=== PATIENT | female | born 1950 | race Caucasian/White ===

== ENCOUNTER 2023-06-03 15:33 | Outpatient (CLI) | payer OTHER, SELFPAY | END 2023-06-03 15:34 | disposition home or self-care (01) | LOC: LKVREF 15:34 | PROVIDERS: Visit Provider Emergency Medicine | DX: L03.90 Cellulitis, unspecified (principal); I10 Essential (primary) hypertension | CPT/HCPCS: 86140 ==

== ENCOUNTER 2023-06-10 11:48 | Outpatient (CLI) | payer OTHER, SELFPAY | END 2023-06-10 11:49 | disposition home or self-care (01) | LOC: NFLDREF 06-13 07:18 | PROVIDERS: Visit Provider Emergency Medicine | DX: I10 Essential (primary) hypertension (principal); L03.90 Cellulitis, unspecified; L03.116 Cellulitis of left lower limb | CPT/HCPCS: 80048 ==

== ENCOUNTER 2023-06-24 12:24 | Outpatient (CLI) | payer OTHER, SELFPAY | END 2023-06-24 12:25 | disposition home or self-care (01) | LOC: LKVREF 12:24 | PROVIDERS: Visit Provider Emergency Medicine | DX: L03.90 Cellulitis, unspecified (principal) | CPT/HCPCS: 87070 ==

== ENCOUNTER 2023-07-28 12:43 | Outpatient (CLI) | payer OTHER, SELFPAY | END 2023-07-28 12:44 | disposition home or self-care (01) | PROVIDERS: PCP Emergency Medicine; Visit Provider Emergency Medicine | DX: R09.89 Other specified symptoms and signs involving the circulatory and respiratory systems (principal); L03.90 Cellulitis, unspecified | CPT/HCPCS: 93924 ==

== ENCOUNTER 2025-03-01 08:46 | Emergency (ER) | payer MEDICARE, SELFPAY ==
[2025-03-01 08:48] VITALS: BP 178/75; PULSE 88; RESP 16; TEMP 36.3; O2SAT 97; BMI 21.4
[2025-03-01 09:27] LABS: Strep A DNA Probe* NOT DETECTED (Not Detectd)
--- NOTE | 2025-03-01 09:27 | ED.GENADULT ---
HPI - General Adult General Chief complaint: Sore Throat Stated complaint: throat hurts- can't talk Time Seen by Provider: 03/01/25 09:15 History of Present Illness HPI narrative: This 74-year-old female comes in reporting sore throat and cough that began 3 or 4 days ago. She has not report any fevers or shortness of breath. She does have a hoarse voice. Related Data Home Medications ?Medication ?Instructions ?Recorded ?Confirmed amlodipine 2.5 mg tablet 2.5 mg PO DAILY 03/01/25 03/01/25 omeprazole 20 mg capsule,delayed 1 PO DAILY 03/01/25 release Allergies Allergy/AdvReac Type Severity Reaction Status Date / Time lisinopril Allergy Severe Anaphylaxis Verified 06/24/23 11:52 Penicillins Allergy Intermediate Verified 06/24/23 11:51 Review of Systems Status of ROS: Reports: 10 or more systems reviewed and unremarkable except as noted in History and below Narrative: Constitutional: No fevers, no weight gain or loss. Eyes: No discharge. No vision changes. HENT: No congestion, no ear pain. Sore throat as described above. Cardiovascular: No chest pain, no palpitations. Respiratory: No shortness of breath, no wheezes. Reports a cough. Gastrointestinal: No abdominal pain, no vomiting, no diarrhea. Genitourinary: No dysuria, no hematuria. Musculoskeletal: Normal range of motion. Skin: No rashes, no pruritis. Neurological: No dizziness, weakness, sensory change, speech change. Endo/Heme/Allergies: No bruising or bleeding. No polydipsia. Pysch: no suicidality, no anxiety, no insomnia. All other systems reviewed and are negative. [facility] Medical History (Updated 03/01/25 @ 10:06 by Onel Haddad MD) Abnormal ankle brachial index ?R68.89 - Other general symptoms and signs (ICD-10) Hypertension ?I10 - Essential (primary) hypertension (ICD-10) Cellulitis ?L03.90 - Cellulitis, unspecified (ICD-10) Foot contusion ?S90.30XA - Contusion of unspecified foot, initial encounter (ICD-10) Family History (Updated 06/03/23 @ 15:39 by Margaret Hamm MD) Father Lung cancer Mother Rheumatoid arthritis Social History Smoking Status: Former smoker How often do you have a drink containing alcohol: never How often do you have six or more drinks on one occasion: Never AUDIT-C Alcohol total score: 0 Non-prescribed substance use: denies use Exam Narrative: Exam Narrative: Constitutional: Well-developed, well-nourished, no acute distress. HEENT: Normocephalic, atraumatic. Oropharynx has erythema without exudate or tonsillar hypertrophy. Her voice is hoarse. Neck: Normal range of motion. Nontender. Supple. Heart: Regular. No murmurs. Normal rate. Intact distal pulses. Lungs: Clear to auscultation. No chest discomfort. No wheezes, rhonchi, or rales. Abdomen: Normal bowel sounds. Nontender. No rebound tenderness. Genitalia: Deferred. Back: No midline tenderness. Normal range of motion. Extremities: Normal range of motion. No injury. Skin: Intact. No rash. Warm. No erythema or pallor. Neurologic: No altered sensation. No weakness. Alert and oriented. Psychiatric: No suicidality. No anxiety or depression. No insomnia. Nursing notes and vitals signs are reviewed. Const: Vital Signs, click to edit/add: Vital Signs - 24 hr 03/01/25 08:48 Temperature 97.3 F L Pulse Rate [Pulse Oximeter] 88 Respiratory Rate 16 Blood Pressure [Ri ght Upper Arm] 178/75 H Pulse Oximetry 97 Oxygen Delivery Me thod Room Air Course Vital Signs Vital signs: Initial Vital Signs Temperature 97.3 F L 03/01/25 08:48 Temperature Source Temporal Artery Scan 03/01/25 08:48 Pulse Rate 88 03/01/25 08:48 Respiratory Rate 16 03/01/25 08:48 Blood Pressure 178/75 H 03/01/25 08:48 Blood Pressure Mean 109 H 03/01/25 08:48 Blood Pressure Position Sitting 03/01/25 08:48 Pulse Oximetry 97 03/01/25 08:48 Oxygen Delivery Method Room Air 03/01/25 08:48 Vital Signs Temperature 97.3 F L 03/01/25 08:48 Pulse Rate 88 03/01/25 08:48 Respiratory Rate 16 03/01/25 08:48 Blood Pressure 178/75 H 03/01/25 08:48 Pulse Oximetry 97 03/01/25 08:48 Oxygen Delivery Method Room Air 03/01/25 08:48 Temperature 97.3 F L 03/01/25 08:48 Pulse Rate 88 03/01/25 08:48 Respiratory Rate 16 03/01/25 08:48 Blood Pressure 178/75 H 03/01/25 08:48 Pulse Oximetry 97 03/01/25 08:48 Oxygen Delivery Method Room Air 03/01/25 08:48 Medications Administered Medications: Discontinued Medications Generic Name Dose Route Start Last Admin Trade Name Vasquez PRN Reason Stop Dose Admin Dexamethasone 10 mg 03/01/25 09:27 03/01/25 09:51 Dexamethasone 10 Mg/Ml Inj PO 03/01/25 09:28 10 mg ONCE ONE Administration Medical Decision Making MDM Narrative Medical decision making narrative: This patient comes in reporting sore throat and cough with hoarse voice over the past 3 or 4 days. She does not have any shortness of breath. She is not showing any sign of tonsillar abscess. Nasal pharyngeal swab returns negative for viruses tested and oral pharyngeal swab is negative for strep. The patient did receive an oral dose of dexamethasone 10 mg. Her symptoms are likely due to a viral upper respiratory infection. She is okay to be discharged home and I did provide a prescription for Toradol. Lab Data Labs: Lab Results 03/01/25 Range/Units 08:55 SARS-CoV-2 (PCR) Negative SARS-CoV-2 (Negative) Influenza Type A (PCR) Negative PCR FLU A (Negative) Influenza Type B (PCR) Negative PCR FLU B (Negative) RSV (PCR) Negative PCR RSV (Negative) Group A Strep DNA NOT DETECTED (Not Detectd) Discharge Plan Discharge Clinical Impression: Acute upper respiratory infection Patient Disposition: Home, Self-Care Condition: Stable Additional Instructions: Take medication as prescribed. Okay to use Tylenol and cough medicine also as needed and directed. Follow up with MD return if worsening. Prescriptions: No Action amlodipine 2.5 mg tablet 2.5 mg PO DAILY omeprazole 20 mg capsule,delayed release(DR/EC) 1 PO DAILY Follow Up/Referrals: Margaret Hamm MD [Staff Physician, Family Practice] Stand Alone Forms: viseto Info Instructions
[2025-03-01 09:39] LABS: PCR FLU A Negative PCR FLU A (Negative); PCR FLU B Negative PCR FLU B (Negative); PCR RSV Negative PCR RSV (Negative); SARS PCR* Negative SARS-CoV-2 (Negative)
--- OUTSIDE RECORDS SUMMARY | 2025-03-01 09:43 | XMS_ITS | Clinical Summary ---
Author Organization [facility] Address [address] [place] [address]. [place] [address] Care Team Providers Care Control Technician Name Role Phone [facility]- Primary Care Provider Allergies Active Allergy Reactions Criticality Noted Date Comments Penicillins Hives 05/21/2019 Medications amoxicillin (AMOXIL) 875 MG tabletIndication s:AOM (acute otitis media), left Take 1 tablet (875 mg) by mouth 2 times daily 20 tablet 0 06/20/2014 Active Active Problems Problem Noted Date Diagnosed Date Advance care planning 08/08/2014 FH: colon cancer 08/28/2011 Overview (08/28/2011): Pt refuses colonoscopy Resolved Problems Problem Noted Date Diagnosed Date Resolved Date Health Snf 05/13/2013 02/09/2024 Overview (05/13/2013): State Tier Level: Tier 0 Status: n/a Repacker: See Letters for [facility] Care Plan Immunizations Immunization Administration Dates Next Due TD,PF 7+ ([facility]) 01/23/2006 Family History Medical History Relation Comments Cancer Father lung Hypertension Mother Cancer - colorectal Sister 6 Breast Cancer No family hx of C.A.D. No family hx of Cerebrovascular Disease No family hx of Diabetes No family hx of Relation Status Comments Brother Alive Father Mother Sister 1 Alive Sister 2 Alive Sister 3 Alive Sister 4 Alive Sister 5 Alive Sister 6 Social History Tobacco Use Types Packs/Day Years Used Date Smoking Tobacco: Every Day Cigarettes 0.5 25 Smokeless Tobacco: Never Tobacco Cessation:Ready to Q uit: No; Counseling Given: Yes Alcohol Use Standard Drinks/Week Comments No 0 (1 standard drink = 0.6 oz pur e alcohol) Adolescent Education Answer Date Record ed Getting School Help Needed Not on file 05/28 Comments No Sex and Gender Information Value Date Recorded Sex Assigned at Not on file 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 Gender Identity Not on file Sexual Orientation Not on file 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 Not on file Not on file Not on ester e Last Filed Vital Signs Vital Sign Reading Time Taken Comments Blood Pressure 167/87 05/28/2023 6:30 PM CDT Pulse 80 05/28/2023 6:30 PM CDT Temperature 36.7 C (98.1 F) 05/28/2023 4:04 PM CDT Respiratory Rate 16 05/28/2023 5:52 PM CDT Oxygen Saturation 96% 05/28/2023 6:30 PM CDT Inhaled Oxygen Concentration - - Weight 53.5 kg (118 lb) 05/28/2023 1:28 PM CDT Height 162.6 cm (5' 4) 05/28/2023 1:28 PM CDT Body Mass Index 20.25 05/28/2023 1:28 PM CDT Plan of Treatment Health Maintenance Due Date Last Done Comments ADVANCE CARE PLANNING 1950 ANNUAL REVIEW OF HM ORDERS 1950 CT COLONOGRAPHY 1950 DEXA 1950 FIT 1950 FLEX SIG 1950 MAMMO SCREENING 1950 sDNA (Cologuard) 1950 COLONOSCOPY 1960 COLORECTAL CANCER SCREENING 1960 HEPATITIS C SCREENING 1968 PNEUMOCOCCAL VACCINE 50+ YEARS (1 of 2 - PCV) 1969 LIPID 1990 LUNG CANCER SCREENING 2000 ZOSTER VACCINE (1 of 2) 2000 DTAP/TDAP/TD VACCINE (1 - Tdap) 01/24/2006 01/23/2006 FALL RISK ASSESSMENT 2015 MEDICARE ANNUAL WELLNESS VISIT 2015 COVID-19 VACCINE ( season) 2024 07/13/2021, 11/17/2020, 10/26/2020 PHQ-2 (once per calendar year) 2024 INFLUENZA VACCINE (#1) 2025 2, 07/02/2021, 06/18/2019, Additional history exists RSV VACCINE (1 - 1-dose 75+ series) 2025 DIABETES SCREENING 05/28/2026 05/28/2023 HPV VACCINE Aged Out No longer eligi ble based on patient's age to complete this topic MENINGITIS VACCINE Aged Out No longer eligible based on patient's age to complete this topic Procedures Procedure Name Priority Date/Time Associated Diagnosis Comments BASIC METABOLIC PANEL STAT 05/28/2023 2:58 PM CDT from Last 3 Months or Most Recently Relevant to Health Maintenance Results * Basic metabolic panel (05/28/2023 2:58 PM CDT) Sodium 141 135 - 145 mmol/L 05/28/2023 3:31 PM CDT [facility] Comment:Reference intervals for this test were updated on 05/20/2023 to more accurately reflect our healthy population. There may be differences in the flagging of prior results with similar values performed with this method. Interpretation of those prior results can be made in the context of the updated reference intervals. Potassium 4.2 3.4 - 5.3 mmol/L 05/28/2023 3:31 PM CDT [facility] Chloride 105 98 - 107 mmol/L 05/28/2023 3:31 PM CDT [facility] Carbon Dioxide (CO2) 27 22 - 29 mmol/L 05/28/2023 3:31 PM CDT [facility] Anion Gap 9 7 - 15 mmol/L 05/28/2023 3:31 PM CDT [facility] Urea Nitrogen 11.7 8.0 - 23.0 mg/dL 05/28/2023 3:31 PM CDT [facility] Creatinine 0.69 0.51 - 0.95 mg/dL 05/28/2023 3:31 PM CDT [facility] GFR Estimate >90 >60 mL/min/1. 73m2 05/28/2023 3:31 PM CDT [facility] Calcium 9.5 8.8 - 10.2 mg/dL 05/28/2023 3:31 PM CDT [facility] Glucose 91 70 - 99 mg/dL 05/28/2023 3:31 PM CDT [facility] Blood BLOOD SPECIMEN / Unknown Venipuncture / Unknown 05/28/2023 2:58 PM CDT 05/28/2023 3:12 PM CDT Francesco Lind MD LAB - BLOOD ORDERABLES Final Result [facility] [address] [facility] (1st floor, no room number) [place] [address], [facility] [phone] from Last 3 Months or Most Recently Relevant to Health Maintenance Insurance MEDICA CHOICE [employer] MEDICARE ADVANTAGE Care Teams Control Technician Relationship Specialty Start Date End Date [facility]- [address] [place] [address] PCP - General 05/28/23
--- OUTSIDE RECORDS SUMMARY | 2025-03-01 09:43 | XMS_ITS | Clinical Summary ---
Author Organization [facility] Address [address] [place] [address] Care Team Providers Care Lumber Yard Worker Name Role Phone Clinic, No Pcp Or Primary Care Provider Unavaila ble Allergies Active Allergy Reactions Criticality Noted Date Comments Lisinopril Dizziness 02/22/2025 Penicillins Hives 05/21/2019 Medications amLODIPine 2.5 mg tabletIndications :Elevated BP without diagnosis of hypertension Take 1 Tablet (2.5 mg) by mouth once daily. 31 Tablet 5 Active Blood Pressure Monitor KitIndications:El evated BP without diagnosis of hypertension Frequency of testing: daily 1 Each 5 Active omeprazole 20 mg tabletIndications :Chronic GERD Take 1 Tablet (20 mg) by mouth once daily before a meal. 30 Tablet 5 Active Encounters Date Type Department Care Team Description 02/22/2025 11:00 AM CDT Office Visit [facility] [address] [place] [address] Edelmira Caputo MD Medicare ANNUAL (subsequent) Visit; Establish Care 02/22/2025 [place] [facility] [place] [address] [place] [address] Sami Palacio MD Appointment Request 02/22/2025 Travel from Last 3 Months Immunizations Immunization Administration Dates Next Due Influenza RIV4 (Age 18+ Years) PRESERV FREE 05/26 Influenza, High-dose Inactivated 06/19/2018 Influenza, High-dose Quadrivalent Inactivated ,07/02/2021 Td, Preservative Free (age >= 7 Years) 6 Tdap 06/03/2023 Social History Tobacco Use Types Packs/Day Years Used Date Smoking Tobacco: Former Cigarettes 0.5 13 1 973 - 1986 Smokeless Tobacco: Never Tobacco Cessation:Counseling Given: Not Answered Alcohol Use Standard Drinks/Week Comments Yes 0 (1 standard drink = 0.6 oz pur e alcohol) PHQ-2 Answer Date Recorded PHQ-2 TOTAL SCORE 0 02/22/2025 Comments Unknown Sex and Gender Information Value Date Recorded Sex Assigned at Not on file 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 Gender Identity Not on file Sexual Orientation Not on file Obstetrics History Last Filed Vital Signs Vital Sign Reading Time Taken Comments Blood Pressure 152/82 02/22/2025 11:02 AM CDT Pulse 77 02/22/2025 10:59 AM CDT Temperature - - Respiratory Rate - - Oxygen Saturation 96% 02/22/2025 10:59 AM CDT Inhaled Oxygen Concentration - - Weight 53.1 kg (117 lb 1.6 oz) 02/22/2025 10:59 AM CDT Height 157 cm (5' 1.81) 02/22/2025 10:59 AM CDT Body Mass Index 21.55 02/22/2025 10:59 AM CDT Plan of Treatment Upcoming Encounters Date Type Department Care Team (Late st Contact Info) Description 03/24/2025 11:30 AM CDT Office Visit [facility] [address] [place] [id number] Annette Crouch PA [address] [place] [id number] Health Maintenance Due Date Last Done Comments Colonoscopy through age 75 1995 Mammogram for age 45-75 1995 Pneumococcal series for age 50+ (1 of 1 - PCV) 2000 Zoster (shingles) series for age 50+ (1 of 2) 2000 DEXA/DXA scan for age 65+ 2015 COVID-19 vaccine series (2023- season) 2024 07/13/2021, 11/17/2020, 10/26/2020 Influenza Vaccine (#1) 2025 9, 06/19/2018 RSV vaccine for adults or (1 - 1-dose 75+ series) 2025 BMI (ht and wt on same day) for age 18+ 02/22/2026 02/22/2025 Depression screening for age 12+ 02/22/2026 02/22/2025 Medicare Wellness for age 65+ 02/23/2026 02/22/2025 Lipids for age 45-75 02/22/2030 02/22/2025 Tetanus booster 06/03/2033 06/03/2023, 01/23/2006 Hepatitis C screening for ag e 18-79 Completed 02/22/2025 Hepatitis B series for 19+ Aged Out N o longer eligible based on patient's age to complete this topic Procedures Procedure Name Priority Date/Time Associated Diagnosis Comments TSH WITH REFLEX Routine 02/22/2025 11:45 AM CDT Elevated BP without diagnosis of hypertension Other general symptoms and signs HEMOGLOBIN A1C MONITORING (POCT) Routine 02/22/2025 11:45 AM CDT Medicare annual wellness visit, subsequent Encounter for screening for diabetes mellitus LIPID PANEL W REFLEX MEASURED LDL Routine 02/22/2025 11:45 AM CDT Medicare annual wellness visit, subsequent Elevated BP without diagnosis of hypertension Encounter for screening for cardiovascular disorders MAGNESIUM Routine 02/22/2025 11:45 AM CDT Medicare annual wellness visit, subsequent COMP METABOLIC PANEL Routine 02/22/2025 11:45 AM CDT Medicare annual wellness visit, subsequent CBC W PLT NO DIFF Routine 02/22/2025 11: 45 AM CDT Medicare annual wellness visit, subsequent ANTI HCV Routine 02/22/2025 11:45 AM CDT Medicare annual wellness visit, subsequent from Last 3 Months Results * TSH WITH REFLEX (02/22/2025 11:45 AM CDT) TSH W/REFLEX TO FT4 1.23 0.40 - 4.50 mIU/L 02/23/2025 7:42 AM CDT [email or web address] Blood BLOOD SPECIMEN / Unknown [facility] / Unknown 02/22/2025 11:45 AM CDT 02/22/2025 11:45 AM CDT Edelmira Caputo MD CHEMISTRY Final Result [email or web address] [address] [place] [address], * LIPID PANEL W REFLEX MEASURED LDL (02/22/2025 11:45 AM CDT) Pathologist [facility] CHOLESTEROL, TOTAL 162 <200 mg/dL 02/23/2025 9:30 AM CDT [email or web address] TRIGLYCERIDES 77 <150 mg/dL 02/23/2025 9:30 AM CDT [email or web address] HDL CHOLESTEROL 50 > OR = 50 mg/dL 02/23/2025 9:30 AM CDT [email or web address] NON HDL CHOLESTEROL 112 <130 mg/dL (calc) 02/23/2025 9:30 AM CDT [email or web address] Comment: For patients with diabetes plus 1 major ASCVD risk factor, treating to a non-HDL-C goal of <100 mg/dL (LDL-C of <70 mg/dL) is considered a therapeutic option. CHOL/HDLC RATIO 3.2 <5.0 (calc) 02/23/2025 9:30 AM CDT [email or web address] LDL-CHOLESTEROL 95 mg/dL (calc) 02/23/2025 9:30 AM [employer] [email or web address] Comment: Reference range: <100 Desirable range <100 mg/dL for primary prevention; <70 mg/dL for patients with CHD or diabetic patients with > or = 2 CHD risk factors. LDL-C is now calculated using the Kisha calculation, which is a validated novel method providing better accuracy than the Friedewald equation in the estimation of LDL-C. Zane SS et al. CLIF. 2013;310(19): 8081-3992 (http://education.[employer].Crunchyroll/faq/DMS198) Blood BLOOD SPECIMEN / Unknown [facility] / Unknown 02/22/2025 11:45 AM CDT 02/22/2025 11:45 AM CDT Edelmira Caputo MD CHEMISTRY Final Result Performing Organization Address City/[facility]/ZIP Co de Phone Number [facility] [address] [address], [place] [phone] * ANTI HCV (02/22/2025 11:45 AM CDT) HEPATITIS C ANTIBODY NON-REACT JA NON-REACT JA 02/23/2025 12:51 PM CDT [facility] Comment: HCV antibody was non-reactive. There is no laboratory evidence of HCV infection. In most cases, no further action is required. However, if recent HCV exposure is suspected, a test for HCV RNA (test code 51222) is suggested. For additional information please refer to http://education.BranchOut/faq/VLI35q2 (This link is being provided for informational/ educational purposes only.) Blood BLOOD SPECIMEN / Unknown [facility] / Unknown 02/22/2025 11:45 AM CDT 02/22/2025 11:45 AM CDT us Edelmira Caputo MD SEND OUTS Final Result Performing Organization Address [facility] Co de Phone Number [facility] [address] [address], * (ABNORMAL) CBC W PLT NO DIFF (02/22/2025 11:45 AM CDT) Pathologist [facility] WHITE BLOOD CELL COUNT 9.1 3.8 - 10.8 Thousand/u L 02/22/2025 12:59 PM CDT [facility] RED BLOOD CELL COUNT 4.60 3.80 - 5.10 Million/uL 02/22/2025 12:59 PM CDT [facility] HEMOGLOBIN 12.9 11.7 - 15.5 g/dL 02/22/2025 12:59 PM CDT [facility] HEMATOCRIT 41.0 35.0 - 45.0 % 02/22/2025 12:59 PM CDT [facility] MCV 89.1 80.0 - 100.0 fL 02/22/2025 12:59 PM CDT [facility] MCH 28.0 27.0 - 33.0 pg 02/22/2025 12:59 PM CDT [facility] MCHC 31.5(L) 32.0 - 36.0 g/dL 02/22/2025 12:59 PM CDT [facility] Comment: For adults, a slight decrease in the calculated MCHC value (in the range of 30 to 32 g/dL) is most likely not clinically significant; however, it should be interpreted with caution in correlation with other red cell parameters and the patient's clinical condition. RDW 12.7 11.0 - 15.0 % 02/22/2025 12:59 PM CDT [facility] PLATELET COUNT 287 140 - 400 Thousand/u L 02/22/2025 12:59 PM CDT [facility] MPV 9.8 7.5 - 12.5 fL 02/22/2025 12:59 PM CDT [facility] Blood BLOOD SPECIMEN / Unknown [facility] / Unknown 02/22/2025 11:45 AM CDT 02/22/2025 11:45 AM CDT Edelmira Caputo MD HEMATOLOGY Final Result [email or web address] [address] [place] [address], [place] [phone] [facility] [address] [place] [address], * MAGNESIUM (02/22/2025 11:45 AM CDT) MAGNESIUM 2.2 1.5 - 2.5 mg/dL 02/23/2025 9:30 AM CDT [facility] Blood BLOOD SPECIMEN / Unknown [facility] / Unknown 02/22/2025 11:45 AM CDT 02/22/2025 11:45 AM CDT Edelmira Caputo MD CHEMISTRY Final Result [facility] [address] [address], [place] [phone] * HEMOGLOBIN A1C MONITORING (POCT) (02/22/2025 11:45 AM CDT) [facility] POC HEMOGLOBIN A1C 5.7 <6.0 % OF TOTAL HGB 02/22/2025 12:59 PM CDT [facility] Comment: Any point of care results exhibiting inconsistency with the patient's clinical status should be repeated using a different testing method. Blood BLOOD SPECIMEN / Unknown [facility] / Unknown 02/22/2025 11:45 AM CDT 02/22/2025 11:45 AM CDT Edelmira Caputo MD CHEMISTRY Final Result Performing Organization Address City/[facility]/ZIP Co de Phone Number [facility] [address] [address], [place] [phone] [facility] [id number] [place] [address], * COMP METABOLIC PANEL (02/22/2025 11:45 AM CDT) Pathologist [facility] SODIUM 140 135 - 146 mmol/L 02/23/2025 9:30 AM CDT [facility] POTASSIUM 4.8 3.5 - 5.3 mmol/L 02/23/2025 9:30 AM CDT [facility] CHLORIDE 104 98 - 110 mmol/L 02/23/2025 9:30 AM CDT [facility] CARBON DIOXIDE 26 20 - 32 mmol/L 02/23/2025 9:30 AM CDT [facility] GLUCOSE 84 65 - 99 mg/dL 02/23/2025 9:30 AM CDT [facility] Comment: Fasting reference interval CALCIUM 9.5 8.6 - 10.4 mg/dL 02/23/2025 9:30 AM CDT [facility] CREATININE 0.73 0.60 - 1.00 mg/dL 02/23/2025 9:30 AM CDT [facility] BUN/CREATININE RATIO SEE NOTE: 6 - 22 (calc) 02/23/2025 9:30 AM CDT [facility] Comment: Not Reported: BUN and Creatinine are within reference range. EGFR 86 > OR = 60 mL/min/1. 73m2 02/23/2025 9:30 AM CDT [facility] ALBUMIN 3.9 3.6 - 5.1 g/dL 02/23/2025 9:30 AM CDT [facility] PROTEIN, TOTAL 6.8 6.1 - 8.1 g/dL 02/23/2025 9:30 AM CDT [facility] BILIRUBIN, TOTAL 0.4 0.2 - 1.2 mg/dL 02/23/2025 9:30 AM CDT [facility] ALKALINE PHOSPHATASE 106 37 - 153 U/L 02/23/2025 9:30 AM CDT [facility] ALT 8 6 - 29 U/L 02/23/2025 9:30 AM CDT [facility] AST 11 10 - 35 U/L 02/23/2025 9:30 AM CDT [facility] UREA NITROGEN (BUN) 12 7 - 25 mg/dL 02/23/2025 9:30 AM CDT [facility] GLOBULIN 2.9 1.9 - 3.7 g/dL (calc) 02/23/2025 9:30 AM CDT [facility] ALBUMIN/GLOBULI N RATIO 1.3 1.0 - 2.5 (calc) 02/23/2025 9:30 AM CDT [facility] Blood BLOOD SPECIMEN / Unknown [facility] / Unknown 02/22/2025 11:45 AM CDT 02/22/2025 11:45 AM CDT Edelmira Caputo MD CHEMISTRY Final Result [facility] [address] [place] [address], [place] [phone] from Last 3 Months Insurance [employer] MEDICARE ADVANTAGE MR Care Teams Lumber Yard Worker Relationship Specialty Start Date End Date Clinic, No Pcp Or . PCP - General 02/18/25
== END 2025-03-01 10:27 | disposition home or self-care (01) ==
PROVIDERS: Emergency Provider Emergency Medicine Emergency Medical Services
DX: J06.9 Acute upper respiratory infection, unspecified (principal)
CPT/HCPCS: 87631; 87651; 99283; 99284; J1100